=== PATIENT | male | born 1970 | race Caucasian/White ===

== ENCOUNTER 2024-08-04 17:58 | Inpatient (IN) | payer OTHER, SELFPAY ==
[2024-08-04 10:53] VITALS: BP 154/85
[2024-08-04 11:29] VITALS: BMI 38.8
[2024-08-04 11:47] LABS: % Basophils 0.4 % (0-2); % Eosinophils 0.7 % (0-6); % Immature Granulocytes 0.4 % (0-0.5); % Lymphocytes 12.2 % (20.5-51.1); % Monocytes 7.4 % (1.7-9.3); % Neutrophils 78.9 % (42.2-75.2); Absolute Basophils 0.1 10^3/uL (0-0.2); Absolute Eosinophils 0.1 10^3/uL (0-0.7); Absolute Immature Granulocytes 0.1 10^3/uL (0-0.05); Absolute Lymphocytes 1.5 10^3/uL (1.2-3.4); Absolute Monocytes 0.9 10^3/uL (0.1-0.6); Absolute Neutrophils 9.5 10^3/uL (1.4-6.5); Hematocrit 42.7 % (39.0-52.0); Mean Corp Hgb Conc. 35.1 g/dL (33.0-37.0); Mean Corpuscular Hgb 30.5 pg (27.0-31.0); Mean Platelet Volume 10.6 fL (7.4-10.4); Nucleated Red Blood Cells % 0 % (-); Platelet Count 203 10^3/uL (130-400); Red Blood Cell Count 4.91 10^6/uL (4.70-6.10); Red Cell Dist. Width 12.5 % (11.5-14.5); White Blood Cell Count 12.1 10^3/uL (4.8-10.8)
[2024-08-04 12:02] LABS: Blood Urea Nitrogen 12 mg/dl (9-20); Calcium 9.1 mg/dl (8.4-10.2); Carbon Dioxide 25 mmol/L (22-30); Chloride 97 mmol/L (98-107); Estimated Creatinine Clearance > 125 ml/min; Glucose 364 mg/dl (70-99); Sodium 135 mmol/L (135-145); eGFR > 60.00
[2024-08-04 12:16] VITALS: BP 122/79
--- NOTE | 2024-08-04 12:33 | ED.GENMED ---
History of Present Illness
General
Chief Complaint: Urinary Symptoms
Source: patient and spouse
Exam Limitations: none
Time Seen by Provider: 08/04/24 11:15
Nursing documentation reviewed up to this point in time: agreed with
History of Present Illness
History of Present Illness:
54-year-old male past medical history of previous A-fib not currently anticoagulated, hypertension presenting to the emergency department today with concerns of swelling discomfort to the inferior and posterior portion of the scrotum progressing
over the past 6 days. Denies any fevers does have discomfort to the area denies any urinary symptoms or change in bowel movements. Denies similar symptoms in the past. No trauma.
Past History
Past History
ED Past Medical History: Arrthythmia (Paroxysmal atrial fibrillation), GERD (H. pylori treated in the 80s.), HTN, Other (Hypokalemia with negative workup for Conn's disease) and Other (Obesity, lumbar disc disease, osteoarthritis)
ED Past Surgical History: Orthopedic (Right knee arthroscopy, lumbar laminectomy)
Social History
Tobacco: Smoker (Occasional)
Alcohol: Occasional (Rare alcohol use)
Drug: None
Personal:
Living: with family
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
Family History
Family History: Hypertension
Review of Systems
Review of Systems
Allergies reviewed?: Yes
All Other Systems: ROS reviewed and negative except as documented in HPI and ROS
Phy Exam
Physical Exam
Physical Exam:
GENERAL: Alert , in no apparent distress
EYE: pupils equal and reactive
NECK: Supple, no significant adenopathy.
ENT: o/p clr, mmm.
CARDIAC: Regular rate and rhythm .
LUNGS: Clear breath sounds bilaterally, no acute respiratory distress, no wheezes/rales/rhonchi
ABDOMEN: Scrotal exam revealing some swelling and induration to the inferior and posterior portion of the scrotum otherwise the anterior and superior portion of the scrotum without significant abnormalities normal testicular examination. Abdomen
soft, without focal tenderness, no r/g, no cvat
NEUROLOGICAL: Alert and oriented, no focal neuro deficits
SKIN: Warm and dry, skin intact.
MUSCULOSKELETAL: No edema, well perfused.
PSYCH: Normal and appropriate interaction.
Course
Orders/Labs/Results
Orders:
Orders
08/04/24 11:24
[address] Pelvis With Iv Contrast Urgent
Comment:
Reason For Exam: pernieal and lower scrotal swelling pain
08/04/24 11:35
BMP [Basic Metabolic Panel] Urgent
CBC/With Diff [Complete Blood Count/With Diff] Urgent
08/04/24 12:14
Urinalysis Reflex To Culture Urgent
Date Specimen was Collected: 08/04/24
Time Specimen was Collected: 12:13
08/04/24 13:02
Scrotum US [US Scrotum] Urgent
Comment:
Reason For Exam: inferior/posterior scrotal pain
08/04/24 15:50
0.9% Sodium Chloride 1000 ml [Nss] 1,000 ml IV BOLUS
08/04/24 16:25
Bedside Glucose- Treatment ONCE
Lactic Acid Urgent
HYDROmorphone [Dilaudid] 1 mg IV NOW STA
08/04/24 16:57
Wound Culture [Wound/Abscess/Other Culture] Urgent
KAIDEN Source: Abscess
Specimen Description:
Date Specimen was Collected: 08/04/24
Time Specimen was Collected: 16:56
Comment: perineum
08/04/24 17:09
Wound Care As Directed
Location of Wound: scrotum-perineum
Treatment of Wound: ABD pads held in place by scrotal support -- change q 4 h x 24 h
08/04/24 17:10
CefTRIAXone [Rocephin] 2,000 mg IV Q24H
08/04/24 17:14
CefTRIAXone [Rocephin] 1,000 mg IV NOW STA
Gentamicin Sulfate [Gentamicin] 500 mg 0.9% Sodium Chloride [Nss] 50 ml IV NOW
08/04/24 18:00
TOBRAMYCIN Pharmacy to Dose [[facility] Pharmacy to Dose] 1 each Pharmacy To Prepare [Call Pharmacy To Prepare] 0 ml IV PER PROTOCOL
Abnormal Lab Results
08/04/24 08/04/24 08/04/24
11:35 12:14 16:31
WBC 12.1 H 10^3/uL
(4.8-10.8)
MPV 10.6 H fL
(7.4-10.4)
Abs Immat Gran (auto) 0.1 H 10^3/uL
(0-0.05)
Absolute Neuts (auto) 9.5 H 10^3/uL
(1.4-6.5)
Absolute Monos (auto) 0.9 H 10^3/uL
(0.1-0.6)
Neutrophils % 78.9 H %
(42.2-75.2)
Lymphocytes % 12.2 L %
(20.5-51.1)
Chloride 97 L mmol/L
(98-107)
Creatinine 0.6 L mg/dL
(0.7-1.3)
Glucose 364 H mg/dl
(70-99)
Urine Ketones 1+ A
(Negative)
Urine Glucose 3+ A
(Negative)
POC Glucose 204 H mg/dl
(70-99)
08/04/24 11:35
08/04/24 11:35
Vital Signs
Initial and Last Documented VS:
Initial Vital Signs
Temp Pulse Resp BP Pulse Ox
98.9 F 97 18 154/85 97
08/04/24 10:53 08/04/24 10:53 08/04/24 10:53 08/04/24 10:53 08/04/24 10:53
Last Documented Vital Signs
Temp Pulse Resp BP Pulse Ox
99.2 F 81 17 134/75 96
08/04/24 17:18 08/04/24 15:36 08/04/24 15:36 08/04/24 15:36 08/04/24 15:36
MDM/Problems Addressed
MDM/Problems Addressed:
54-year-old male presenting to the emergency department today with scrotal discomfort. Symptoms mainly to posterior and inferior port plan for CT chest. Otherwise no systemic symptoms normal vital signs labs showing slight white count of 12.1,
patient does have a glucose level of 364. Does have a history of diabetes currently on metformin. CT scan without obvious answers the patient's findings on exam. Ultrasound was performed that showed likely abscess. Case was discussed with
urology that reviewed the images and came to see the patient and did not I&D. Concerning he is diabetic plan to admit him for IV antibiotics monitoring overnight.
*Critical Care Note
Total Time (30-74mins, 75-104mins- exclusive of procedures): Not Applicable
ED Attending Note
-
Portions of this chart may have been created with voice recognition software.� Occasional wrong word or��sound alike� substitutions may have occurred due to the inherent limitations of voice recognition software.
Discharge Plan
Departure
Patient Disposition: Admit
Date of Disposition: 08/04/24
Time of Disposition: 17:21
Admit to: Med/Surg
Admit to doctor: Julianne
Presentation/result/management discussed w/ accepting MD/DO: Hospitalist
Patient with high blood pressure during this ER visit?: No
Condition: Good
Covid-19: Not Applicable
Discharge Problem:
Scrotal abscess
Prescriptions:
No Action
spironolactone 25 MG tablet
25 mg PO DAILY
verapamil 180 MG capsule,ext rel. pellets 24 hr
360 mg PO DAILY
potassium chloride [Klor-Con M20] 20 MEQ tablet,ER particles/crystals
20 meq PO DAILY
dronedarone [Multaq] 400 MG tablet
400 mg PO DAILY
omeprazole magnesium [Prilosec OTC] 20 MG tablet,delayed release (DR/EC)
20 mg PO DAILY
nicotine 14 MG patch 24 hour
14 mg transdermal DAILY Qty: 7 0RF
metformin 1,000 MG tablet
1,000 mg PO BID@0800,1700 Qty: 60 0RF
(DME) blood sugar diagnostic [Blood Glucose Test] 1 EACH strip
1 ea MC ACHS Qty: 1 0RF
(DME) lancets 1 EACH misc
1 ea MC ACHS Qty: 1 0RF
Rx Instructions:
For Contour machine
Referrals:
Kemal Schwab DO [Family Provider] -
Interventions
Interventions:
*Risk Screen - Suicide Last Done: 08/04/24 11:30
*General Assessment Last Done: 08/04/24 11:30
*Neglect/Abuse Screening Last Done: 08/04/24 11:30
ED- Fall Risk Assessment Last Done: 08/04/24 13:39
*ED COVID-19 Vaccine History Last Done: 08/04/24 11:30
ED-Male Genitourinary Assessment Last Done: 08/04/24 12:16
Discharge Date and Time
Print Language: SWEDISH
[2024-08-04 12:47] LABS: Urine Albumin Negative (Neg - Trace); Urine Bilirubin Negative (Negative); Urine Character Clear (Clear); Urine Color Yellow; Urine Glucose 3+ (Negative); Urine Ketone 1+ (Negative); Urine Leukocyte Negative (Negative); Urine Nitrite Negative (Negative); Urine Occult Blood Negative (Negative); Urine Specific Gravity 1.015 (<1.030); Urine Urobilinogen Negative (Neg - 1+)
[2024-08-04 15:36] VITALS: BP 134/75
[2024-08-04] MEDS: NSS 1000 IV ×2 (16:05→20:38)
[2024-08-04] MEDS: DILAUDID 1 MG IV (16:28)
[2024-08-04 16:32] LABS: Glucose - Point of Care 204 mg/dl (70-99)
[2024-08-04 16:48] LABS: Lactic Acid 1.4 mmol/L (0.7-2.0)
--- NOTE | 2024-08-04 16:58 | CONS.URO ---
Consultation
-
Date/Time Consultation Performed: 08/04/1625
Performing Provider: Tawanda
Reason for Consultation: Scrotal abscess
Medical History
History of Present Illness
54 yo diabetic male noted 'lump' in inferior scrotum-perineal area last week -- abnormality became larger and more tender prompting presentation to ED.
no drainage
no F/C/S
no voiding sx
Past Medical History
Past Medical History: IDDM and Other (Arrthythmia (Paroxysmal atrial fibrillation), GERD (H. pylori treated in the 80s.), HTN,Hypokalemia,Obesity, lumbar disc disease, osteoarthritis))
Past Surgical History: Other ( Orthopedic (Right knee arthroscopy, lumbar laminectomy))
Social History
Alcohol: Occasional
Drug: None
Personal:
Living: With Family
Employment: Employed
Family History
Family History: Reviewed & Not Pertinent
Allergies/Home Medications
Allergies
Allergy/AdvReac Type Severity Reaction Status Date / Time
No Known Allergies Allergy Unverified 12/28/17 19:24
Home Medications
�Medication �Instructions �Recorded �Confirmed �Type
dronedarone 400 mg tablet (Multaq) 400 mg PO DAILY 12/28/17 12/28/17 History
omeprazole magnesium 20 mg 20 mg PO DAILY 12/28/17 12/28/17 History
tablet,delayed release (Prilosec
OTC)
potassium chloride 20 mEq 20 meq PO DAILY 12/28/17 12/28/17 History
tablet,extended
release(part/cryst) (Klor-Con M)
spironolactone 25 mg tablet 25 mg PO DAILY 12/28/17 12/28/17 History
verapamil 180 mg 24 hr 360 mg PO DAILY 12/28/17 12/28/17 History
capsule,extended release
blood sugar diagnostic (Blood ##1 12/31/17 Rx
Glucose Test strips)
lancets 21 gauge ##1 12/31/17 Rx
metformin 1,000 mg tablet 1,000 mg PO BID@0800,1700 ##60 12/31/17 Rx
nicotine 14 mg/24 hr daily 14 mg transdermal DAILY ##7 12/31/17 Rx
transdermal patch
Physical Exam
Vital Signs
Vital Signs
Temp Pulse Resp BP Pulse Ox
98.9 F 81 17 134/75 96
08/04/24 10:53 08/04/24 15:36 08/04/24 15:36 08/04/24 15:36 08/04/24 15:36
Lab / Testing Results
Laboratory Results
08/04/24 11:35
08/04/24 11:35
Physical Exam
adult male supine on ED bed
General: Well Developed, Well Nourished and No Apparent Distress
HEENT: Normocephalic
GI: Soft
Genito-urinary: Other (inferior scrotum slightly to left of midline is enlarged and tender with a fluctuant mass c/s abscess; verbal consent obtained in presence of for bedside I&D: site prepped with Betadine and Hibiclens; 10 cc lidocaine; 15
blade use for 1.5 cm incision which promtly drained ~ 75 cc pus )
Skin: Warm
Neuro: Awake
Hematologic/Lymphatic: Lymphadenopathy
Psych: Calm
Assessment / Plan
-
Scrotal cellulitis with abscess but NOT Jc's gangrene
Hyperglycemia due to DM + infection
Rec:
would culture for micro
empiric antibiosis [Cephalosporin + aminoglycoside]
management of blood sugars
local wound care
Data Reviewed
-
CT Scan: Image personally visualized and interpreted
Lab Data: Labs Reviewed
Old Records: Reviewed
[2024-08-04 17:25] VITALS: BP 132/72
[2024-08-04] MEDS: NOVOLOG vial 24 UNITS SC (17:29)
--- NOTE | 2024-08-04 17:53 | HPS.HSE ---
Family Physician
-
Family Physician: Kemal Schwab
Chief Complaint
-
scrotal pain
History of Present Illness
54-year-old male past medical history of paroxysmal atrial fibrillation on Xarelto, diabetes, GERD, hypertension, obesity, lumbar disc disease, osteoarthritis presenting for scrotal swelling progressing over the past 6 days. He denies any injury.
He denies any fevers but is having sweating. He denies any urinary symptoms or change in bowel movements. Denies any trauma to the area. Denies any nausea vomiting or diarrhea.
He states his blood sugars are normally well-controlled taking Premeal insulin 24 units. He is scheduled to see new coat joiner lockstitch soon.
He smokes occasionally. He denies alcohol use.
Medical History
Past Medical History
Past Medical History: Reports Other (paroxysmal atrial fibrillation on Xarelto, diabetes, GERD, hypertension, obesity, lumbar disc disease, osteoarthritis )
Past Surgical History: Reports Other (Orthopedic (Right knee arthroscopy, lumbar laminectomy))
Social History
Tobacco: Non-smoker
Alcohol: None
Drug: None
Family History
Family History: Not pertinent
Allergies / Home Medications
Allergies reflects when Allergies were last updated in [facility].
Home Medications with original date entered in [facility]
Allergy/Medication List:
Allergies
Allergy/AdvReac Type Severity Reaction Status Date / Time
No Known Allergies Allergy Unverified 12/28/17 19:24
Home Medications
dronedarone 400 mg tablet (Multaq) 400 mg PO BID 12/28/17
omeprazole magnesium 20 mg tablet,delayed release (Prilosec OTC) 20 mg PO DAILY 12/28/17
spironolactone 25 mg tablet 25 mg PO DAILY 12/28/17
verapamil 180 mg 24 hr capsule,extended release 180 mg PO BID 12/28/17
citalopram 40 mg tablet 40 mg PO DAILY 08/04/24
ibuprofen 200 mg tablet (Advil) 800 mg PO [id number] PRN mild pain 08/04/24
insulin lispro 100 unit/mL subcutaneous pen (Humalog KwikPen (U-100) Insulin) 24 unit SC AC 08/04/24
metformin 500 mg tablet,extended release 24 hr 1,000 mg PO BID 08/04/24
rivaroxaban 20 mg tablet (Xarelto) 20 mg PO DAILY@1800 08/04/24
therapeutic multivitamin 1 tab PO DAILY 08/04/24
Review of Systems
-
History Source: Patient
A 12 point ROS was completed and negative except as noted: Yes
Constitutional: Reports No Symptoms
EENT: Reports No Symptoms
Respiratory: Reports No Symptoms
Cardiac: Reports No Symptoms
Abdomen/GI: Reports No Symptoms
: Reports No Symptoms
Musculoskeletal: Reports No Symptoms
Skin: Reports No Symptoms
Neurological: Reports No Symptoms
Endocrine: Reports No Symptoms
Hematologic/Lymphatic: Reports No Symptoms
Psych: Reports No Symptoms
Physical Exam
Vital Signs
Vital Signs
Temp Pulse Resp BP Pulse Ox
99.2 F 84 18 132/72 95
08/04/24 17:18 08/04/24 17:25 08/04/24 17:25 08/04/24 17:25 08/04/24 17:25
Physical Exam
General: Well Developed, Well Nourished and No Apparent Distress
HEENT: NormoCephalic, Moist mucous membranes and Atraumatic
Respiratory: Clear
Cardiac: S1/S2 and Regular Rhythm; No Murmur or Rub
GI: Soft, Non Tender, Non Distended and Normal Bowel Sounds; No Organomegaly
Rectal: Deferred by Provider
Musculoskeletal: No Clubbing, No Cyanosis and No Edema
Skin: Other (scrotal swelling ); No Rash
Neuro: Nonfocal/grossly intact
Laboratory Results
-
08/04/24 11:35
08/04/24 11:35
Laboratory Results
Lactic Acid 1.4 mmol/L (0.7-2.0) 08/04/24 16:25
Data Reviewed
-
Lab Data: Labs Reviewed by me
Old Records: Reviewed
Impression/Plan
-
IMPRESSION:
PLAN:
# Scrotal cellulitis with abscess
-Scrotal ultrasound shows complex mass with both cystic and solid components and increased blood flow in the soft tissues
-I&D performed, wound culture sent
-Ceftriaxone, tobramycin
-IV fluids
-Wound care consulted
-Urology consulted
-Hold Xarelto for now
-Dilaudid for pain
# Hyperglycemia secondary to infection
# Type 2 diabetes
-Hold metformin
-Continue Humalog 24 units before meals
Paroxysmal atrial fibrillation
-Hold Xarelto
-Continue Multaq
-Continue verapamil
Essential hypertension
-Continue spironolactone
GERD
-Continue omeprazole
Obesity
Lumbar disc disease
Osteoarthritis
Anxiety/depression
-Continue citalopram
Full code
DVT prophylaxis�heparin
Diabetic diet
[2024-08-04] MEDS: STERILE WATER FOR INJECTION 20 ML IV (18:37)
[2024-08-04] MEDS: ROCEPHIN 2000 MG IV (18:37)
[2024-08-04] MEDS: NEBCIN 62 MG IV (18:59)
[2024-08-04 19:56] VITALS: BP 140/68; BMI 38.4
[2024-08-04 20:45] VITALS: BMI 38.4
[2024-08-04] MEDS: MOTRIN 800 MG PO (20:54)
[2024-08-04 21:11] LABS: Glucose - Point of Care 293 mg/dl (70-99)
[2024-08-04] MEDS: CALAN EXTENDED RELEASE 180 MG PO (21:26)
[2024-08-04] MEDS: HEPARIN 5000 UNITS SC (21:26)
[2024-08-04] MEDS: MULTAQ 400 MG PO (21:27)
[2024-08-04] MEDS: TYLENOL 650 MG PO (23:00)
[2024-08-04 23:48] VITALS: BP 109/53
[2024-08-05 07:45] VITALS: BP 124/73
[2024-08-05 07:49] LABS: Glucose - Point of Care 222 mg/dl (70-99)
[2024-08-05 07:56] LABS: % Basophils 0.6 % (0-2); % Eosinophils 1.3 % (0-6); % Immature Granulocytes 0.4 % (0-0.5); % Lymphocytes 19.7 % (20.5-51.1); % Monocytes 7.7 % (1.7-9.3); % Neutrophils 70.3 % (42.2-75.2); Absolute Basophils 0.1 10^3/uL (0-0.2); Absolute Eosinophils 0.1 10^3/uL (0-0.7); Absolute Lymphocytes 1.7 10^3/uL (1.2-3.4); Absolute Monocytes 0.7 10^3/uL (0.1-0.6); Absolute Neutrophils 5.9 10^3/uL (1.4-6.5); Hematocrit 40.5 % (39.0-52.0); Hemoglobin 13.9 g/dL (13.0-18.0); Mean Corp Hgb Conc. 34.3 g/dL (33.0-37.0); Mean Corpuscular Hgb 31.2 pg (27.0-31.0); Mean Corpuscular Volume 90.8 fL (80.0-94.0); Mean Platelet Volume 11.1 fL (7.4-10.4); Nucleated Red Blood Cells % 0 % (-); Platelet Count 175 10^3/uL (130-400); Red Blood Cell Count 4.46 10^6/uL (4.70-6.10); Red Cell Dist. Width 12.3 % (11.5-14.5); White Blood Cell Count 8.4 10^3/uL (4.8-10.8)
[2024-08-05 08:34] LABS: ALT (SGPT) 30 U/L (0-50); AST (SGOT) 21 U/L (17-59); Albumin 3.5 g/dl (3.5-5.0); Alkaline Phosphatase 81 U/L (38-126); Blood Urea Nitrogen 13 mg/dl (9-20); Calcium 8.6 mg/dl (8.4-10.2); Carbon Dioxide 24 mmol/L (22-30); Chloride 102 mmol/L (98-107); Estimated Creatinine Clearance > 125 ml/min; Glucose 240 mg/dl (70-99); Potassium 4.2 mmol/L (3.5-5.1); Sodium 137 mmol/L (135-145); Total Bilirubin 0.6 mg/dl (0.2-1.3); Total Protein 5.8 g/dl (6.3-8.2); eGFR > 60.00
[2024-08-05] MEDS: CALAN EXTENDED RELEASE 180 MG PO (08:35)
[2024-08-05] MEDS: ALDACTONE 25 MG PO (08:37)
[2024-08-05] MEDS: THERAGRAN 1 TABLET PO (08:37)
[2024-08-05] MEDS: HEPARIN 5000 UNITS SC (08:37)
[2024-08-05] MEDS: MULTAQ 400 MG PO (08:37)
[2024-08-05] MEDS: PROTONIX 40 MG PO (08:37)
[2024-08-05] MEDS: NOVOLOG FLEXPEN 24 UNITS SC ×2 (08:38→12:12)
[2024-08-05] MEDS: NOVOLOG FLEXPEN-LOW RESISTANCE 2 UNITS SC ×2 (08:39→12:13)
[2024-08-05 09:27] LABS: Glycohemoglobin (HgbA1c) 12.7 % (4.0-5.6)
[2024-08-05 12:06] LABS: Glucose - Point of Care 224 mg/dl (70-99)
[2024-08-05] MEDS: XANAX 0.25 MG PO (12:17)
[2024-08-05] MEDS: NSS IV (12:34)
[2024-08-05] MEDS: LANTUS 0.2 UNITS SC (13:02)
--- NOTE | 2024-08-05 13:06 | W.PN.URO.CBU ---
Today's Communication / Plan
-
daily sitz baths until aperture closes
Assessment / Plan
-
much improved
fit for discharge urologically
Diagnosis
-
Date of Service: August 05, 2024
-
Patient Diagnosis:
Scrotal cellulitis with abscess but NOT Jc's gangrene
Hyperglycemia due to DM + infection
s/p bedside I&D 08/04
Subjective
-
'I feel so much better and want to go home'
Objective
-
Vital Signs
Temp Pulse Resp BP Pulse Ox
97.2 F 74 12 124/73 95
08/05/24 07:45 08/05/24 08:35 08/05/24 07:45 08/05/24 08:35 08/05/24 08:40
Intake and Output
08/04/24 08/05/24 08/06/24
06:59 06:59 06:59
Intake Total 1440 / 1440
Balance 1440 / 1440
Intake:
Oral fluids 480 / 480
IV fluids (Total) 960 / 960
Other:
Number of approximated MODERATE 2
amounts of urine
Laboratory Results
08/05/24 07:14
08/05/24 07:14
Physical Exam
-
General - well developed, well nourished, no acute distress
Genitalia - Left-of midline 1.5 cm incision with much reduced cellulitis
--- NOTE | 2024-08-05 13:09 | CM ---
medical practice manager reviewed patient's chart and met with patient and patient lives with his spouse in a 2 story home, 3 steps to enter, patient is independent with adl's and ambulation, no dme, patient drives.
Pharmacy: [facility]
PCP: Dr. Kemal Schwab
Plan; Home with spouse when stable, no needs.
--- NOTE | 2024-08-05 13:57 | PN.DE.MGMTRT ---
Insulin Management
- -
08/05/2024 Diabetes management Consult
Patient admitted 08/04 with c/o swelling of scrotum - scrotal abscess. PMH afib, HTN, GERD. A1C on admission 12.7%, cr .6, eGFR >60.
Prior to admission was taking novolog 24 units AC with metformin 1000 BID
Patient is awake alert and oriented resting in bed able to discuss diabetes management. States he often forgets his humalog. He states he cannot take long acting insulin because then he cant sleep. States he saw and endo in [place] who never
offered any assistance with AM lantus. Told patient to BUY a pump, which he did for 7,000$ but patient was never educated on how to use it.
Discussed importance of glucose control, he is agreeable to long acting insulin in AM.
Will start 20 units lantus now and daily, will reduce AC novolog to 20 units with low corrective insulin. Will resume metformin BID 1000 mg.
Patient has a Ivis 2 for glucose monitoring.
Patient expressed interest in pump will provide up to date information.
Diabetes History
- -
Type of Diabetes: 2 requiring insulin
Pre-Admission Diabetes Regimen
08/05/24
07:14
Creatinine 0.6 L
Lab Results
Hemoglobin A1c 12.7 % (4.0-5.6) H 08/05/24 07:14
Insulin Pump Settings
IP Diabetes Regimen
08/04/24 08/04/24 08/05/24
16:31 21:10 07:14
Glucose 240 H
POC Glucose 204 H 293 H
08/05/24 08/05/24
07:48 12:05
Glucose
POC Glucose 222 H 224 H
Patient Education
--- NOTE | 2024-08-05 15:32 | W.PN.HOSP.TC ---
Addendum entered and electronically signed by Wendy Allen MD 08/05/24 19:33:
I saw and evaluated the patient independently. I reviewed the resident�s note and agree with findings and plan as documented by Dr. Kidd.
GENERAL: well developed, well nourished, male in no apparent distress
HEENT: NC/AT
HEART: regular rate and rhythm, +S1, +S2
LUNGS : clear to auscultation bilaterally
ABDOM: soft, nontender, nondistended, + bowel sounds
EXT: no cyanosis, clubbing, or edema
NEUROLOGIC: grossly intact
: scrotal area with firmness and small opening (from previous I&D) with serosanguineous drainage--no pus
Scrotal cellulitis with abscess--Scrotal ultrasound shows complex mass with both cystic and solid components and increased blood flow in the soft tissues--apprec urology--I&D by urology--culture positive from Group B strep--rocephin to keflex--cont
10 day treatment--follow up with urology
Hyperglycemia secondary to infection with Type 2 diabetes--Hold metformin--Continue Humalog 24 units before meals
Paroxysmal atrial fibrillation--Hold Xarelto--restart at d/c--Continue Multaq--Continue verapamil
Essential hypertension--Continue spironolactone
GERD--Continue omeprazole
Obesity
Lumbar disc disease
Osteoarthritis
Anxiety/depression--Continue citalopram
Full code
DVT prophylaxis�heparin
ok for d/c
Original Note:
Today's Communication/Plan
-
Continue antibiotics
Assessment / Plan
Assessment / Plan
Assessment:
54-year-old male past ministry of A-fib on Xarelto and diabetes presents for scrotal swelling of the past 7 days status post I&D
Plan:
#Scrotal swelling
Scrotal ultrasound demonstrates complex mass with both cystic and solid components and increased blood flow to soft tissues
Status post incision and drainage
Patient receiving ceftriaxone and tobramycin
Tobramycin discontinued
Culture sent
Cultures resulted with Streptococcus agalactiae
Urology consulted, said patient is okay to be discharged from their standpoint
Dilaudid for pain
Patient to be discharged on Keflex 500 4 times daily for 10 days
#Insulin-dependent diabetes
A1c 12.7
Patient reports having difficulties with his outpatient [employer] nurse and difficulties managing his insulin
perinatal specialist consulted
Patient discharged on rectifying medications per diabetes management
#Paroxysmal atrial fibrillation
Past medical history of A-fib on Xarelto
Patient heart rate on EKG in emergency department read as sinus rhythm with premature atrial complexes with apparent conduction
Holding Xarelto
Patient getting subcu heparin
Full code
DVT prophylaxis: Subcu heparin
Diet: Diabetic control
Anticipated Discharge: Today
Subjective/Interval History
-
Date of Service: August 05, 2024
No acute events overnight
Patient reports minimal drainage from incision, bloody
Objective Data
-
Labs:
Laboratory Results
08/05/24
07:14
WBC 8.4
Hgb 13.9
Hct 40.5
Plt Count 175
Sodium 137
Potassium 4.2
Chloride 102
Carbon Dioxide 24
BUN 13
Creatinine 0.6 L
Glucose 240 H
Calcium 8.6
Total Bilirubin 0.6
AST 21
ALT 30
Alkaline Phosphatase 81
Vital Signs:
Vital Signs
Temp Pulse Resp BP Pulse Ox
97.2 F 74 12 124/73 95
08/05/24 07:45 08/05/24 08:35 08/05/24 07:45 08/05/24 08:35 08/05/24 08:40
I&O
09/09/1708/05/24 08/06/24
06:59 06:59 06:59
Intake Total 1440 / 1440
Balance 1440 / 1440
Review of Systems
-
History Source: Patient
Constitutional: Reports No Symptoms
Respiratory: Reports No Symptoms
Cardiac: Reports No Symptoms
Abdomen/GI: Reports No Symptoms
Physical Exam
-
General: Well Developed, Well Nourished, No Apparent Distress, Comfortable and Conversant
Respiratory: Clear to Auscultation
Cardiac: Regular Rhythm and S1/S2
GI: Soft, Nontender, Nondistended and Normal Bowel Sounds
Genito-urinary: Other (Erythematous scrotum, incision on posterior aspect of scrotum draining blood with no pus)
Skin: Warm and Dry
Neuro: Awake, Alert, Oriented and AO x 3
Psych: Calm and Intact Judgement/Insight
Data Reviewed
-
Labs: Labs Reviewed by me and Discussed with Physician
[2024-08-05 15:45] VITALS: BP 139/78
--- NOTE | 2024-08-05 16:20 | W.DCSUMMARY ---
Addendum entered and electronically signed by Wendy Allen MD 08/05/24 19:35:
Read, reviewed, and agree. See same day progress note for additional details. Time spent coordinating care, DC planning, review of DC plan of care with resident, transition of care, review of records in EMR, med rec, consults, notes, d/w
consultants, nursing, family, and CM.
Original Note:
Discharge Summary
Discharge Data
Date of Admission: 08/04/24
Date of Discharge: 08/05/24
-
Pending Results: No
Hospital Course
Discharging Physician : Alejandro Kidd
Disposition : Home
Primary care physician : Dr. Schwab
Principal Discharge diagnosis : Scrotal abscess
Chronic Discharge diagnosis : Obesity, diabetes paroxysmal A-fib
Hospital Course : 54-year-old male past medical history of A-fib, on Xarelto, diabetes, hypertension, lumbar disc disease presented to the emergency department for 6 days of progressive and painful scrotal swelling. In the emergency department
patient received a scrotal ultrasound which demonstrated a complex mass with both cystic and solid components and increased blood flow. Incision and drainage was performed and wound cultures were sent. Patient was started on ceftriaxone and
tobramycin. Wound care was consulted, urology was consulted and patient was given Dilaudid for pain. Patient was admitted to [facility] for further management and treatment. During his time here urology saw the patient and said that after his
drainage he was good to go from the perspective. 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 nurse informatics educator made adjustments to
his insulin regimen and oral hypoglycemics and patient was discharged with adjusted medications. Patient will follow-up with endocrinology as an outpatient. Patient's cultures resulted with group B strep that was sensitive to Keflex. Patient was
discharged on Keflex 500 mg 4 times a day for a total of 10 days. He received 2 days of antibiotics which totals 12 days antibiotics total. Patient will follow-up with his primary care physician within 1 week and urology in 3 to 4 weeks for
management of his diabetes and for further evaluation of his scrotal mass. Patient was discharged home.
Important imaging findings :
08/04/[address], impression:
No findings to confirm well-formed abnormal focal fluid collection such as an abscess within the soft tissues of the base of the penis or perineum.
08/04/2024 scrotum ultrasound, impression:
3.5 x 2.8 x 2.0 cm complex mass with both cystic and solid components and increased blood flow in the soft tissues component within which is likely separate and caudal to the right scrotum. Findings may be inflammatory/infectious. Unfortunately,
malignancy can't be excluded.
Procedure findings : 08/05/2024, incision and drainage, scrotum
Discharge Plan
-
Patient Disposition: Home (Routine Discharge)
Discharge Diagnosis/Procedures: Scrotal cellulitis with abscess
Hyperglycemia due to DM + infection
Diet: Diabetic, Carb Controlled
Activity: No restrictions
Driving Restrictions: As prior to admission
Bathing Restrictions: sitz baths daily until incision is closed
Activity Restrictions/Additional Instructions:
Please follow-up with your primary care provider within 1 week for resolution of your infection
Please follow-up with urology in 3 to 4 weeks to reevaluate your mass seen on ultrasound
Referrals:
Chaim Neff MD [Active] - in three to four weeks (call to schedule appt in 3-4 weeks)
Kemal Schwab DO [Family Provider] - in less than 1 week
Additional Discharge Medication Instructions: Please take Keflex 4 times a day by mouth for a total of 10 days
Prescriptions:
New
cephalexin 500 mg capsule
500 mg PO QID Qty: 40 0RF
metformin 1,000 mg Tablet
1,000 mg PO BID@0800,1700 Qty: 60 0RF
insulin aspart U-100 100 unit/mL (3 mL) Insulin Pen
20 unit SC AC 30 Days Qty: 18 0RF
Insulin Glargine Lantus [Lantus] 20 UNITS
Subcutaneous Insulin Syringe [Syringe-Insulin] 0 UNIT
As Directed mls/hr SC DAILY
Reason for use: Diabetes
Ordered By: Alexsander Kidd DO, Resident
Last Taken: 08/05/24 13:02 0.2 mls
Continued
spironolactone 25 MG tablet
25 mg PO DAILY
verapamil 180 MG capsule,ext rel. pellets 24 hr
180 mg PO BID
Multaq 400 MG tablet
400 mg PO BID
omeprazole magnesium [Prilosec OTC] 20 MG tablet,delayed release (DR/EC)
20 mg PO DAILY
citalopram 40 mg Tablet
40 mg PO DAILY
therapeutic multivitamin Tablet
1 tab PO DAILY
ibuprofen [Advil] 200 mg Tablet
800 mg PO [id number] PRN (Reason: mild pain)
Xarelto 20 mg Tablet
20 mg PO DAILY@1800
Discontinued
metformin 500 mg Tablet Extended Release 24 Hr
1,000 mg PO BID
insulin lispro [Humalog KwikPen Insulin] 100 unit/mL Insulin Pen
24 unit SC AC
Discharge Orders:
Discharge Patient (As Directed); Ordered 08/05/24
Ordered By: Alexsander Kidd
Discharge Date and Time
Discharge Date/Time: 08/05/24 17:42
Print Language: THAI
--- NOTE | 2024-08-06 09:26 | PN.CDI ---
CDI
- -
CDI:
Physician Documentation Request
Admit Date: 08/04/24 17:58
Dear Doctor Marti,
Please review the following and provide your response in the progress notes.
Clinical Indicators:
- 08/05 PN 'Scrotal cellulitis with abscess'
- 'Hyperglycemia secondary to infection with Type 2 diabetes'
- 'A1c 12.7...Patient reports having difficulties...managing his insulin'
Please clarify the relationship between these conditions:
Yes, _cellulitis__ is related to/associated with/due to _diabetes__.
No, _cellulitis__ is not related to/associated with/due to _diabetes__ but it is due to . (Please specify)
Unable to determine
Use of terms such as suspected, likely, concern for, or probable (associated with a specific diagnosis that is being evaluated, monitored, or treated as if it exists) are acceptable and can be coded in the inpatient setting, when documented at the
time of discharge.
Thank you,
Cassy Sidhu RN
CDI Specialist
Please use your independent medical judgment in providing your response.
--- NOTE | 2024-08-06 12:10 | W.PN.UPDATE ---
Update Note
Progress Note Update
#Cellulitis related to/associated with diabetes
Hemoglobin A1c 12.7
Cellulitis likely related to diabetes
== END 2024-08-05 17:42 | disposition home or self-care (01) | DRG 989 ==
LOC: 4 EAST ACU 17:58
PROVIDERS: Physician Assistant; ADMITTING PHYSICIAN Hospitalist; ATTENDING PHYSICIAN Internal Medicine; EMERGENCY PHYSICIAN Emergency Medicine; FAMILY PHYSICIAN Family Medicine; OTHER PHYSICIAN Specialist
PROC: 0V950ZZ Drainage of Scrotum, Open Approach (ICD-10-PCS; 2024-08-04)
DX: E11.628 Type 2 diabetes mellitus with other skin complications (principal); N49.2 Inflammatory disorders of scrotum; B95.1 Streptococcus, group B, as the cause of diseases classified elsewhere; I48.0 Paroxysmal atrial fibrillation; K21.9 Gastro-esophageal reflux disease without esophagitis; I10 Essential (primary) hypertension; E11.65 Type 2 diabetes mellitus with hyperglycemia; F32.A Depression, unspecified; F41.9 Anxiety disorder, unspecified; F17.200 Nicotine dependence, unspecified, uncomplicated; M51.36 Other intervertebral disc degeneration, lumbar region; E66.9 Obesity, unspecified; Z68.38 Body mass index [BMI] 38.0-38.9, adult; Z79.01 Long term (current) use of anticoagulants; Z79.4 Long term (current) use of insulin; Z79.84 Long term (current) use of oral hypoglycemic drugs
CPT/HCPCS: 72193; 76870; 80048; 80053; 81003; 82962; 83036; 83605; 85025; 87070; 87077; 87147; 87205; 93005; 93976; 96361; 96372; 96374; 99285; Q9967